=== PATIENT | male | born 1995 | race Hispanic/Latino ===

== ENCOUNTER 2021-07-14 09:36 | Day surgery (SDC) | payer BC ==
[~2021-07-14 09:36] MED LIST: SODIUM CHLORIDE 0.9% 1000 ML 1,000 ML IV SCH
--- NOTE | 2021-07-14 10:15 | Anesthesia Day of Surgery ---
Anesthesia Day of Surgery - Day of Surgery Patient Examined: Yes Patient H&P Reviewed: Yes Patient is NPO: Yes
--- NOTE | 2021-07-14 10:17 | Anesthesia Consultation ---
Anesthesia Consult and Med Hx Date of service: 07/14/21 - Airway Anesthetic Teeth Evaluation: Good ROM Head & Neck: Adequate Mental/Hyoid Distance: Adequate Mallampati Class: Class I Intubation Access Assessment: Good - Pre-Operative Health Status ASA Pre-Surgery Classification: ASA2 Proposed Anesthetic Plan: MAC - Pulmonary Hx Smoking: Yes - Gastrointestinal Hx Ulcer: Yes Hx Gastroesophageal Reflux Disease: Yes
[2021-07-14] MEDS ORDERED: LIDOCAINE MPF (2%) 20 MG/1 ML VIAL 5 ML ONE (10:23)
[2021-07-14] MEDS ORDERED: propofoL 200 MG/20 ML VIAL IV ONE ×2 (10:24→10:49)
[2021-07-14] MEDS ORDERED: MIDAZOLAM 2 MG/2 ML INJ ONE (10:31)
--- NOTE | 2021-07-14 11:05 | Procedure Note ---
Date of procedure: 07/14/21 Pre-op diagnosis: Dyspepsia/ Epigastric Pain Post-op diagnosis: other (No Peptic Ulcer disease noted/ Mild to Moderate Erosive Esophagitis/ R/O Eosinophilic Esophagitis/ Gastritis/ R/O Celiac Disease) Procedure: EGD with Biopsy [place] [facility] [place]: SEJAL VINSON Estimated blood loss: minimal Pathology: list Specimen disposition: to lab Condition: stable Disposition: same day (Avoid aspirin and NSAID for 5 days; otherwise resme home medication and follow up in 1 to 2 weeks ([phone]). Treat with PPI, prn Bentyl and OTC Probiotics)
--- NOTE | 2021-07-14 11:19 | Operative Report ---
DATE OF SURGERY: 07/14/2021 PROCEDURE PERFORMED: EGD with biopsy. INDICATIONS: This is a 26-year-old white male who has been having dyspeptic symptoms and epigastric pain. EGD was done to make sure there was not any associated peptic ulcer disease. DESCRIPTION OF PROCEDURE: After getting informed consent with MAC anesthesia. The instrument was passed through the hypopharynx into the esophagus, which showed some mild to moderate erosive esophagitis. Photodocumentation and biopsy was done from the distal esophagus. Additional biopsy was also done from the mid esophagus to rule out for eosinophilic esophagitis. Stomach showed gastritis, but no ulcers were noted in the straight of the retroverted view. The pylorus was patent. The duodenum in the first and the second portion appeared normal. Biopsy was done from the second part of the duodenum to rule out for celiac disease. Additional biopsy was done from the gastric antrum and gastric body to rule out for H. pylori or atrophic gastritis. There was minimal bleeding associated with the procedure. No complications associated with the procedure. ASSESSMENT: Dyspepsia, no peptic ulcer disease noted. Mild to moderate erosive esophagitis, rule out eosinophilic esophagitis, gastritis, rule out celiac disease. PLAN: To treat the patient with proton pump inhibitor and p.r.n. dose of Bentyl. Also encouraged the patient to take probiotics. Have the patient avoid aspirin and aspirin-related products for the next few days and follow up in the office in 1-2 weeks' time. Procedure was done in the GI lab with assistance of the GI lab team, which included the GI nurse, equipment tech and with assistance of anesthesia. TID: [id number] RECE[place]: [id number] [place] [place]
[2021-07-14 12:16] VITALS: BP 113/58
--- NOTE | 2021-07-14 14:47 | Post Anesthesia Evaluation ---
- Post Anesthesia Evaluation Patient Participated: Yes Airway Patent: Yes Stable Respiratory Function: Yes Nausea/Vomiting: No Temp > 96.8F: Yes Pain Manageable: Yes Adequeate Hydration: Yes Anesthesia Complications: No Block Receding Appropriately: Not Applicable Patient on Ventilator: No
== END 2021-07-14 11:45 | disposition home or self-care (01) ==
LOC: GIO 09:36
DX: R10.13 Epigastric pain (principal); K21.00 Gastro-esophageal reflux disease with esophagitis, without bleeding; K29.50 Unspecified chronic gastritis without bleeding; K31.89 Other diseases of stomach and duodenum; F17.210 Nicotine dependence, cigarettes, uncomplicated; Z79.899 Other long term (current) drug therapy; Z98.890 Other specified postprocedural states
CPT/HCPCS: 43239; 88305; J2250; J2704; J7030